=== PATIENT | male | born 1950 | race Caucasian/White ===

== ENCOUNTER 2017-10-15 15:54 | Observation (INO) | payer MEDICARE, OTHER ==
--- NOTE | 2017-10-15 16:12 | ED Physician Documentation ---
PD HPI DYSPNEA - Stated complaint Stated Complaint: CP/SOA - Chief complaint Chief Complaint: Cardiac - History obtained from History obtained from: Patient - History of Present Illness Timing - onset: Today (He has had a couple days of mild chest pain and shortness of breath which became worse today. He is a little bit of a cough with it and has noted some charley horses in his left leg but is not current. There is no recent travel. He has no history of heart or lung disease except for hypertension and he does have type 2 diabetes and recently started insulin. He feels better upright and supine. There is no pedal edema.) Review of Systems Ten Systems: 10 systems reviewed and negative Constitutional: denies: Fever, Chills Nose: denies: Rhinorrhea / runny nose, Congestion Cardiac: reports: Chest pain / pressure. denies: Palpitations, Pedal edema, Calf pain Respiratory: reports: Dyspnea, Cough. denies: Hemoptysis, Wheezing PD PAST MEDICAL HISTORY - Past Medical History Past Medical History: Yes Cardiovascular: Hypertension Endocrine/Autoimmune: Type 2 diabetes - Present Medications Home Medications: Ambulatory Orders Medication Instructions Recorded Confirmed Albuterol Sulf [Ventolin Hfa 2 puffs INH Q4H PRN 10/15/17 10/15/17 Inhaler] Amlodipine Besylate [Amlodipine 10 mg PO DAILY 10/15/17 10/15/17 Besylate] Doxazosin Mesylate [Doxazosin 2 mg PO QPM 10/15/17 10/15/17 Mesylate] Gabapentin 800 mg PO QPM 10/15/17 10/15/17 Gabapentin [Gabapentin] 800 mg PO 0 10/15/17 10/15/17 Glimepiride [Glimepiride] 8 mg PO 1700 10/15/17 10/15/17 Insulin Glargine [Lantus Solostar] 10 units SUBQ QPM 10/15/17 10/15/17 Pioglitazone HCl [Pioglitazone HCl] 30 mg PO DAILY 10/15/17 10/15/17 Pravastatin Sodium [Pravastatin 20 mg PO QPM 10/15/17 10/15/17 Sodium] Tamsulosin [Flomax] 0.4 mg PO DAILY 10/15/17 10/15/17 Tramadol HCl [Tramadol HCl] 100 mg PO QPM 10/15/17 10/15/17 Trazodone HCl 50 mg PO QPM 10/15/17 10/15/17 hydroCHLOROthiazide 25 mg PO DAILY 10/15/17 10/15/17 [Hydrochlorothiazide] - Allergies Allergies/Adverse Reactions: Allergies Allergy/AdvReac Type Severity Reaction Status Date / Time No Known Drug Allergies Allergy Verified 10/15/17 17:18 - Living Situation Living Situation: reports: Alone - Social History Does the pt smoke?: No Does the pt have substance abuse?: No - Family History Family history: reports: Non contributory PD ED PE NORMAL - Vitals Vital signs reviewed: Yes - General General: Alert and oriented X 3, No acute distress - HEENT HEENT: PERRL, EOMI - Neck Neck: Supple, no meningeal sign, No bony TTP, No JVD - Cardiac Cardiac: RRR, No murmur - Respiratory Respiratory: No respiratory distress, Clear bilaterally - Abdomen Abdomen: Soft, Non tender - Back Back: No CVA TTP, No spinal TTP - Derm Derm: Normal color, Warm and dry - Extremities Extremities: No edema, No calf tenderness / cord - Neuro Neuro: Alert and oriented X 3, Normal speech - Psych Psych: Normal mood, Normal affect Results - Vitals Vitals: Vital Signs - 24 hr 10/15/17 15:58 Temperature 36.7 C Heart Rate 82 Respiratory 18 Rate Blood Pressure 216/87 H O2 Saturation 97 Oxygen O2 Source Room air - EKG (time done) 1601 Rate: Rate (enter#) (70) Rhythm: NSR [place]: Normal Intervals: Normal [place] QRS: Normal Ischemia: Normal ST segments Computer interpretation: Agree with computer - Labs Labs: Laboratory Tests 10/15/17 10/15/17 10/15/17 16:20 16:20 16:20 WBC 7.0 RBC 3.94 L Hgb 12.3 L Hct 36.2 L MCV 92.0 MCH 31.3 H MCHC 34.0 RDW 13.5 Plt Count 180 MPV 8.5 Neut # 4.4 Lymph # 1.6 [place] # 0.7 Eos # 0.2 Baso # 0.0 Absolute Nucleated RBC 0.00 Nucleated RBC % 0.0 D-Dimer < 200.0 L Sodium 134 L Potassium 3.8 Chloride 100 L Carbon Dioxide 29 Anion Gap 5.0 L BUN 40 H Creatinine 1.9 H Estimated GFR (MDRD) 35 L Glucose 257 H Calcium 9.0 Total Bilirubin 0.5 AST 32 ALT 28 Alkaline Phosphatase 77 Troponin I B-Natriuretic Peptide Total Protein 7.1 Albumin 4.3 Globulin 2.8 Albumin/Globulin Ratio 1.5 Lipase 18 L 10/15/17 10/15/17 16:20 16:20 WBC RBC Hgb Hct MCV MCH MCHC RDW Plt Count MPV Neut # Lymph # [place] # Eos # Baso # Absolute Nucleated RBC Nucleated RBC % D-Dimer Sodium Potassium Chloride Carbon Dioxide Anion Gap BUN Creatinine Estimated GFR (MDRD) Glucose Calcium Total Bilirubin AST ALT Alkaline Phosphatase Troponin I < 0.04 B-Natriuretic Peptide 74 Total Protein Albumin Globulin Albumin/Globulin Ratio Lipase PD MEDICAL DECISION MAKING - ED course ED course: 67-year-old gentleman with unexplained positional shortness of breath. He is at high risk for coronary disease given his comorbidities, especially diabetes and hypertension. His initial workup is negative with a clear chest x-ray, normal EKG and negative biomarkers and d-dimer. That said without an obvious explanation I think an anginal equivalent must be assumed and I spoke with Dr. Harrison for observation and rule out at 5:15 PM. Departure - Departure Disposition: ED Place in Observation Clinical Impression: Chest pain Qualifiers: Chest pain type: chest pain on breathing Qualified Code(s): R07.1 - Chest pain on breathing Dyspnea Qualifiers: Dyspnea type: dyspnea on exertion Qualified Code(s): R06.09 - Other forms of dyspnea Condition: Stable
--- NOTE | 2017-10-15 16:31 | XRAY Preliminary Report ---
Exam: XR CHEST 2 VIEW X-RAY IMPRESSION: Normal 2-view chest radiography. [facility] SITE ID: [id number]
--- NOTE | 2017-10-15 16:37 | XRAY Report ---
EXAM: CHEST RADIOGRAPHY EXAM DATE: 10/15/2017 04:25 PM. CLINICAL HISTORY: Chest tightness and shortness of breath for one day. COMPARISON: None. TECHNIQUE: 2 views. FINDINGS: Lungs/Pleura: No focal opacities evident. No pleural effusion. No pneumothorax. Normal volumes. Mediastinum: Heart and mediastinal contours are unremarkable. Other: None. IMPRESSION: Normal 2-view chest radiography. [facility] Referring Provider Line: [phone] SITE ID: [id number]
[2017-10-15 16:45] LABS: BASOPHILS % (AUTO) 0.7 %; EOSINOPHILS # (AUTO) 0.2 10^3/uL (0.0-0.7); EOSINOPHILS % (AUTO) 2.8 %; HGB - HEMOGLOBIN 12.3 g/dL (14.0-18.0); LYMPHOCYTES # (AUTO) 1.6 10^3/uL (1.5-3.5); LYMPHOCYTES % (AUTO) 23.6 %; MEAN CORPUSCULAR HEMOGLOBIN 31.3 pg (27.0-31.0); MEAN PLATELET VOLUME 8.5 fL (7.4-11.4); MONOCYTES # (AUTO) 0.7 10^3/uL (0.0-1.0); MONOCYTES % (AUTO) 9.4 %; NEUTROPHILS # (AUTO) 4.4 10^3/uL (1.5-6.6); NEUTROPHILS % (AUTO) 63.5 %; PLT - PLATELET COUNT 180 10^3/uL (130-450); RED BLOOD COUNT 3.94 10^6/uL (4.70-6.10); RED CELL DISTRIBUTION WIDTH 13.5 % (12.0-15.0)
[2017-10-15 16:52] LABS: ALBUMIN 4.3 g/dL (3.2-5.5); ALBUMIN/GLOBULIN RATIO 1.5 (1.0-2.2); BILIRUBIN,TOTAL 0.5 mg/dL (0.2-1.0); CREATININE 1.9 mg/dL (0.6-1.2); TOTAL PROTEIN 7.1 g/dL (6.7-8.2)
[2017-10-15] MEDS ORDERED: ASPIRIN CHEW 81 MG TABLET PO STA (17:13)
[2017-10-15] MEDS ORDERED: TEMAZEPAM 15 MG CAPSULE PO PRN (17:34)
[2017-10-15] MEDS ORDERED: SODIUM CHLORIDE FLUSH 0.9% 10 ML SYRINGE IVP PRN (17:34)
[2017-10-15] MEDS ORDERED: oxyCODONE 5 MG TABLET PO PRN (17:34)
[2017-10-15] MEDS ORDERED: PROCHLORPERAZINE 10 MG/2 ML VIAL IVP PRN (17:34)
--- NOTE | 2017-10-15 17:46 | HISTORY & PHYSICAL EXAMINATION ---
Chief Complaint - Chief Complaint Chief Complaint: Chest tightness History of Present Illness - Admitted From Admitted From:: Home - History Obtained From History obtained from: Patient, ER physician Exam Limitations: None noted - History of Present Illness HPI Comment/Other: Mr. Jose Galvez is a very pleasant 67-year-old gentleman with a history of hypertension, hypercholesterolemia, and type 2 diabetes mellitus. He began to experience some chest tightness today around 3 PM which he experienced more as a shortness of breath and anything else. He relates it to a similar feeling that he has when he gets leg cramps. He spoke with some friends and finally spoke with a neighbor who is a nurse who just took him to the emergency department where he was evaluated and found to be hypertensive with a blood pressure of 216/87. An EKG was done which was completely negative for any type of pathology as was a chest x-ray which was also similarly free of pathology. The patient's creatinine is 1.9 and he says he has a history of an elevated creatinine for which he was taken off of 1 of his diabetes medications. Because of the patient's history it is felt to be prudent that he be observed for the remaining 2 sets of troponins. The first set was negative. History - Past Medical History Cardiovascular: reports: Hypertension, High cholesterol Respiratory: reports: COPD Neuro: reports: Peripheral neuropathy Endocrine/Autoimmune: reports: Type 2 diabetes GI: reports: None AUTOMATION DRIVER: reports: None : reports: Benign prostate hypertrophy, Incontinence HEENT: reports: None Psych: reports: None Musculoskeletal: reports: None Derm: reports: None MRSA Hx?: No - Past Surgical History Derm: reports: Debridement Other past surgical history: The patient denies ever having had surgery. - Family & Social History Family History: Mother: , CVA/TIA, Diabetes, Type 2, Father: , CAD, Hyperlipidemia, Hypertension, [place], Brother: Living arrangement: At home Living Situation: Alone - Substance History Use: Uses substance without health or social issues: NONE Abuse: Recurrent use of substance despite neg consequences: NONE Dependence: Experiences withdrawal or developed tolerances: NONE (Patient quit drinking alcohol about 8-10 years ago and quit smoking cigarettes about 18 years ago.) - POLST Patient has POLST: No POLST Status: Full Code Meds/Allgy - Home Medications Home Medications: Ambulatory Orders Medication Instructions Recorded Confirmed Albuterol Sulf [Ventolin Hfa 2 puffs INH Q4H PRN 10/15/17 10/15/17 Inhaler] Amlodipine Besylate [Amlodipine 10 mg PO DAILY 10/15/17 10/15/17 Besylate] Doxazosin Mesylate [Doxazosin 2 mg PO DAILY 10/15/17 10/15/17 Mesylate] Gabapentin [Gabapentin] 800 mg PO TID 10/15/17 10/15/17 Glimepiride [Glimepiride] 4 mg PO BID 10/15/17 10/15/17 Insulin Glargine [Lantus Solostar] 10/15/17 Pioglitazone HCl [Pioglitazone HCl] 30 mg PO DAILY 10/15/17 10/15/17 Pravastatin Sodium [Pravastatin 20 mg PO QPM 10/15/17 10/15/17 Sodium] Tamsulosin [Flomax] 0.4 mg PO DAILY 10/15/17 10/15/17 Tramadol HCl [Tramadol HCl] 50 mg PO TID 10/15/17 10/15/17 Trazodone HCl 50 mg PO QPM 10/15/17 10/15/17 hydroCHLOROthiazide 25 mg PO DAILY 10/15/17 10/15/17 [Hydrochlorothiazide] - Allergies Allergies/Adverse Reactions: Allergies Allergy/AdvReac Type Severity Reaction Status Date / Time No Known Drug Allergies Allergy Verified 10/15/17 17:18 Review of Systems - Constitutional Constitutional: denies: Fatigue, Fever, Chills, Weakness, Night sweats - Eyes Eyes: denies: Pain, Irritation, Blurred vision, Dipolpia - Ears, Nose & Throat Ears, Nose & Throat: denies: Ear pain, Hearing loss, Hearing aids, Tinnitus, Vertigo, Nasal pain, Nasal discharge - Cardiovascular Cariovascular: reports: Chest pain. denies: Palpitations, Edema, Syncope - Respiratory Respiratory: reports: SOB at rest, Other (Chest tightness). denies: Cough, Sputum production, Wheezing, Snoring - Gastrointestinal Gastrointestinal: denies: Abdominal pain, Abdominal distention, Constipation, Diarrhea, Change in bowel habits, Rectal bleeding - Genitourinary Genitourinary: denies: Dysuria, Frequency, Urgency, Hematuria - Musculoskeletal Musculoskeletal: denies: Muscle pain, Back pain, Muscle aches, Stiffness - Integumentary Integumentary: denies: Rash, Pruritis, Lesions, Dryness - Neurological Neurological: denies: General weakness, Focal weakness, Headache, Dizziness - Psychiatric Psychiatric: denies: Depression, Anxiety, Suicidal, Hallucinations - Endocrine Endocrine: denies: Polyuria, Polydypsia, Polyphagia - Hematologic/Lymphatic Hematologic/Lymphatic: denies: Anemia, Bruising, Petechiae, Lymphadenopathy - All Other Systems All Other Systems: reports: Reviewed and negative Exam - Vital Signs Reviewed Vital Signs: Yes Vital Signs: Vital Signs x48h Temp Pulse Resp BP Pulse Ox 10/15/17 15:58 36.7 C 82 18 216/87 H 97 - Physical Exam General Appearance: positive: No acute distress, Alert Eyes Bilateral: positive: Normal inspection, PERRL, EOMI, No lid inflammation, Conjunctivae nml, No scleral icterus ENT: positive: ENT inspection nml, Pharynx nml, No signs of dehydration Neck: positive: Nml inspection, Thyroid nml, No JVD, Trachea midline. negative : Thyromegaly Respiratory: positive: Chest non-tender, No respiratory distress, Breath sounds nml. negative: Wheezes, Rales, Rhonchi Cardiovascular: positive: Regular rate & rhythm, No murmur, No gallop Peripheral Pulses: positive: 1+ Abdomen: positive: Non-tender, No organomegaly, Nml bowel sounds, No distention. negative: Guarding, Rebound Back: positive: Nml inspection. negative: CVA tenderness (R), CVA tenderness (L ) Skin: positive: Color nml, No rash, Warm, Dry. negative: Cyanosis Extremities: positive: Non-tender, Full ROM, Nml appearance Neurologic/Psychiatric: positive: Oriented x3, CN's nml (2-12), Motor nml, Sensation nml, Mood/affect nml Conclusion/Plan - Problem List (1) Chest tightness or pressure Conclusion/Plan: Patient is admitted to a telemetry bed. We will continue with the chest pain/ cardiac workup. The patient will have 2 more sets of troponins and if these are negative we will discharge him in the morning. (2) Chronic kidney disease (CKD) Conclusion/Plan: The patient relates being taken off of diabetic medication because it was affecting his kidney function. He believes he has a history of chronic renal disease but is unsure of any staging. There are no records available at this time. We will monitor. (3) Hypertension Conclusion/Plan: Markedly elevated on admission with a blood pressure of 216/87. Continue hydrochlorothiazide, amlodipine, and will add an HOMER inhibitor given the patient 's diabetic status. Qualifiers: Hypertension type: essential hypertension Qualified Code(s): I10 - Essential (primary) hypertension (4) Hypercholesterolemia Conclusion/Plan: Presumably well-managed, continue pravastatin. (5) Type 2 diabetes mellitus Conclusion/Plan: Presumably well-managed, continue glimepiride, insulin, and pioglitazone. Qualifiers: Diabetes mellitus complication detail: with unspecified neuropathy (6) Benign prostatic hyperplasia Conclusion/Plan: Well-managed, continue doxazosin and tamsulosin (7) Diabetic neuropathy Conclusion/Plan: No new complaints, continue gabapentin and tramadol (8) Chronic obstructive pulmonary disease Conclusion/Plan: Well-managed, the patient is not experiencing any type of respiratory distress at this time. Continue albuterol. (9) Insomnia Conclusion/Plan: We will continue nighttime trazodone. - Lab Results Lab results reviewed: Yes Fish Bones: 10/15/17 16:20 10/15/17 16:20 - Diagnostic Imaging Results Diagnostic Imaging Results: positive: Final report reviewed Diagnostic Imaging Results Comments: EXAM: CHEST RADIOGRAPHY EXAM DATE: 10/15/2017 04:25 PM. CLINICAL HISTORY: Chest tightness and shortness of breath for one day. COMPARISON: None. TECHNIQUE: 2 views. FINDINGS: Lungs/Pleura: No focal opacities evident. No pleural effusion. No pneumothorax. Normal volumes. Mediastinum: Heart and mediastinal contours are unremarkable. Other: None. IMPRESSION: Normal 2-view chest radiography. - EKG Results EKG Interpreted Independently: Yes EKG Comparison: Old EKG unavailable EKG Findings: Normal sinus rhythm, rate 70 Core Measures - DVT/VTE - Prophylaxis VTE/DVT Device ordered at admit?: Yes
[2017-10-15] MEDS ORDERED: GLIMEPIRIDE 2 MG TABLET PO SCH (18:00)
[2017-10-15] MEDS ORDERED: ALBUTEROL NEB 2.5 MG/3 ML INH PRN (19:00)
[2017-10-15] MEDS ORDERED: traZODone 50 MG TABLET PO SCH (21:00)
[2017-10-15] MEDS ORDERED: traMADol 50 MG TABLET PO SCH (21:00)
[2017-10-15] MEDS ORDERED: INSULIN GLARGINE 300 UNIT/3 ML PEN SUBQ SCH (21:00)
[2017-10-15] MEDS ORDERED: GABAPENTIN 400 MG CAPSULE PO SCH (21:00)
[2017-10-15] MEDS ORDERED: PRAVASTATIN 10 MG TABLET PO SCH (21:00)
[2017-10-15] MEDS ORDERED: DOXAZOSIN 4 MG TABLET PO SCH (21:00)
[2017-10-15] MEDS: INSULIN ASPART 300 UNIT/3 ML PEN SUBQ SCH (21:49)
[2017-10-16] MEDS: SODIUM CHLORIDE FLUSH 0.9% 10 ML SYRINGE IVP SCH ×2 (00:30→08:06)
[2017-10-16 06:36] LABS: HGB - HEMOGLOBIN 11.6 g/dL (14.0-18.0); MEAN CORPUSCULAR HEMOGLOBIN 30.7 pg (27.0-31.0); MEAN CORPUSCULAR HGB CONC 33.4 g/dL (32.0-36.0); MEAN PLATELET VOLUME 7.9 fL (7.4-11.4); RED BLOOD COUNT 3.79 10^6/uL (4.70-6.10); RED CELL DISTRIBUTION WIDTH 13.5 % (12.0-15.0); WHITE BLOOD COUNT 5.8 x10^3/uL (4.8-10.8)
[2017-10-16 06:43] LABS: CREATININE 1.8 mg/dL (0.6-1.2)
[2017-10-16 07:12] LABS: HB2 TOTAL 12.8 g/dL; HEMOGLOBIN A1C 0.76 g/dL; HEMOGLOBIN A1C % 7.6 % (4.6-6.2)
[2017-10-16] MEDS: INSULIN ASPART 300 UNIT/3 ML PEN SUBQ SCH (07:58)
[2017-10-16 08:10] VITALS: BP 154/74
[2017-10-16] MEDS ORDERED: hydroCHLOROthiazide 25 MG TABLET PO SCH (09:00)
[2017-10-16] MEDS ORDERED: amLODIPine 5 MG TABLET PO SCH (09:00)
[2017-10-16] MEDS ORDERED: TAMSULOSIN 0.4 MG CAPSULE PO SCH (09:00)
[2017-10-16] MEDS ORDERED: POLYETHYLENE GLYCOL 3350 17 GM PACKET PO SCH (09:00)
[2017-10-16] MEDS ORDERED: PIOGLITAZONE 15 MG TABLET PO SCH (09:00)
--- NOTE | 2017-10-16 09:18 | Discharge Plan ---
Discharge Plan Disposition: 01 Home, Self Care Condition: Stable Prescriptions: Nitroglycerin 0.4 mg SL FINISH GRINDER PRN #30 tab.subl PRN Reason: Chest Pain Diet: Low Sodium Activity Restrictions: Activity as Tolerated Shower Restrictions: No Driving Restrictions: No Weight Bearing: Full Weight Instruction Topics: Angina, Nitroglycerin Fast Acting Additional Instructions or Follow Up instructions: Follow-up with Dr. Muñoz next week and with a cyber legal advisor as soon as possible. If you start to have chest pain or chest pressure take the nitroglycerin and come to the emergency department immediately. No Smoking: If you smoke, Please STOP! Call for help. Follow-up with: Belle Muñoz MD [Primary Care Provider] -
--- NOTE | 2017-10-16 10:28 | DISCHARGE SUMMARY ---
Discharge Summary Admit Date: 10/15/17 Discharge Date: 10/16/17 Discharging Provider: Sofia Harrison DO Primary Care Provider: Belle Muñoz MD Code Status: Attempt Resuscitation Condition at Discharge: Stable Discharge Disposition: 01 Home, Self Care - DIAGNOSES Admission Diagnoses: 1. Chest tightness 2. Chronic kidney disease 3. Hypertension 4. Hypercholesterolemia 5. Type 2 diabetes mellitus 6. Benign prostatic hyperplasia 7. Diabetic neuropathy 8. Chronic obstructive pulmonary disease 9. Insomnia Discharge Diagnoses with Status of Each Condition: 1. Chest tightness- Chest x-ray was negative for any acute pathology, BNP is within normal limits. 3 sets of serial troponins were negative. The patient will be discharged home and will follow up with his primary care physician and with a supervisor coremaker. I believe this is unstable angina and I will discharge the patient home with a prescription of sublingual nitroglycerin as well. Should he have any further chest tightness or chest pain he will return to the emergency room immediately. 2. Chronic kidney diseaseWe are unable to obtain any records but have been told that the patient was once taken off of a antidiabetic medication due to problems with his kidneys. His creatinine has come down from 1.9 yesterday to 1.8 today.- 3. Hypertension- Patient's blood pressure is labile but fairly well-managed. Continue home medication regimen. 4. Hypercholesterolemia- Presumably well-managed, continue home pravastatin. 5. Type 2 diabetes mellitus -Presumably well-managed, continue glimepiride, insulin, and pioglitazone. 6. Benign prostatic hyperplasia- Well-managed, continue doxazosin and tamsulosin 7. Diabetic neuropathy- No new complaints during this hospitalization, continue gabapentin and tramadol at home. 8. Chronic obstructive pulmonary disease -Well-managed, the patient is not experiencing any type of respiratory distress at this time. Continue albuterol. 9. Insomnia- We will continue nighttime trazodone at home. - HPI History of Present Illness: Mr. Jose Galvez is a very pleasant 67-year-old gentleman with a history of hypertension, hypercholesterolemia, and type 2 diabetes mellitus. He began to experience some chest tightness today around 3 PM which he experienced more as a shortness of breath and anything else. He relates it to a similar feeling that he has when he gets leg cramps. He spoke with some friends and finally spoke with a neighbor who is a nurse who just took him to the emergency department where he was evaluated and found to be hypertensive with a blood pressure of 216/87. An EKG was done which was completely negative for any type of pathology as was a chest x-ray which was also similarly free of pathology. The patient's creatinine is 1.9 and he says he has a history of an elevated creatinine for which he was taken off of 1 of his diabetes medications. Because of the patient's history it is felt to be prudent that he be observed for the remaining 2 sets of troponins. The first set was negative. - HOSPITAL COURSE Hospital Course: The patient was admitted to a telemetry bed in the observation becerril. 2 further sets of troponins were drawn and came back negative. Patient did not experience any significant chest tightness or shortness of breath while on the observation floor. - ALLERGIES Allergies/Adverse Reactions: Allergies Allergy/AdvReac Type Severity Reaction Status Date / Time No Known Drug Allergies Allergy Verified 10/15/17 17:18 - MEDICATIONS Home Medications: Ambulatory Orders Medication Instructions Recorded Confirmed Albuterol Sulf [Ventolin Hfa 2 puffs INH Q4H PRN 10/15/17 10/15/17 Inhaler] Amlodipine Besylate 10 mg PO DAILY 10/15/17 10/15/17 Doxazosin Mesylate 2 mg PO QPM 10/15/17 10/15/17 Gabapentin 800 mg PO 1700 10/15/17 10/15/17 Gabapentin 800 mg PO QPM 10/15/17 10/15/17 Glimepiride 8 mg PO 1700 10/15/17 10/15/17 Insulin Glargine [Lantus Solostar] 10 units SUBQ QPM 10/15/17 10/15/17 Pioglitazone HCl 30 mg PO DAILY 10/15/17 10/15/17 Pravastatin Sodium 20 mg PO QPM 10/15/17 10/15/17 Tamsulosin [Flomax] 0.4 mg PO DAILY 10/15/17 10/15/17 Tramadol HCl 100 mg PO QPM 10/15/17 10/15/17 Trazodone HCl 50 mg PO QPM 10/15/17 10/15/17 hydroCHLOROthiazide 25 mg PO DAILY 10/15/17 10/15/17 [Hydrochlorothiazide] Nitroglycerin 0.4 mg SL WOOD HEEL CEMENTER PRN #30 tab.subl 10/16/17 - PHYSICAL EXAM AT DISCHARGE General Appearance: positive: No acute distress, Alert Eyes Bilateral: positive: Normal inspection, PERRL, EOMI, No lid inflammation, Conjunctivae nml, No scleral icterus ENT: positive: ENT inspection nml, Pharynx nml, No signs of dehydration Neck: positive: Nml inspection, Thyroid nml, No JVD, Trachea midline. negative : Thyromegaly Respiratory: positive: Chest non-tender, No respiratory distress, Breath sounds nml. negative: Wheezes, Rales, Rhonchi Cardiovascular: positive: Regular rate & rhythm, No murmur, No gallop Peripheral Pulses: positive: 1+ Abdomen: positive: Non-tender, No organomegaly, Nml bowel sounds Back: positive: Nml inspection. negative: CVA tenderness (R), CVA tenderness (L ) Skin: positive: Color nml, No rash, Warm, Dry. negative: Cyanosis Extremities: positive: Non-tender, Full ROM, Nml appearance, No pedal edema Neurologic/Psychiatric: positive: Oriented x3, CN's nml (2-12), Motor nml, Sensation nml, Mood/affect nml - LABS Result Diagrams: 10/16/17 06:25 10/16/17 06:25 - DIAGNOSTIC IMAGING Diagnostic Imaging Results: Final report reviewed Diagnostic Imaging Results Comments: EXAM: CHEST RADIOGRAPHY EXAM DATE: 10/15/2017 04:25 PM. CLINICAL HISTORY: Chest tightness and shortness of breath for one day. COMPARISON: None. TECHNIQUE: 2 views. FINDINGS: Lungs/Pleura: No focal opacities evident. No pleural effusion. No pneumothorax. Normal volumes. Mediastinum: Heart and mediastinal contours are unremarkable. Other: None. IMPRESSION: Normal 2-view chest radiography. - FOLLOW UP Follow Up: Follow-up with Dr. Muñoz next week. Follow-up with a supervisor coremaker as soon as possible. If you start to have chest pain, chest pressure, tightness, or shortness of breath, take the nitroglycerin and come back to the emergency department immediately. - TIME SPENT Time Spent in Discharge (Minutes): 40
[2017-10-16] MEDS ORDERED: GABAPENTIN 400 MG CAPSULE PO SCH (17:00)
== END 2017-10-16 11:48 | disposition home or self-care (01) ==
LOC: ED 15:54 → OBS 17:34
PROVIDERS: ADMIT Hospitalist; ATTEND Hospitalist
DX: R07.89 Other chest pain (principal); E11.22 Type 2 diabetes mellitus with diabetic chronic kidney disease; E11.40 Type 2 diabetes mellitus with diabetic neuropathy, unspecified; I12.9 Hypertensive chronic kidney disease with stage 1 through stage 4 chronic kidney disease, or unspecified chronic kidney disease; N18.9 Chronic kidney disease, unspecified; E78.00 Pure hypercholesterolemia, unspecified; J44.9 Chronic obstructive pulmonary disease, unspecified; G47.00 Insomnia, unspecified; Z79.51 Long term (current) use of inhaled steroids; Z79.4 Long term (current) use of insulin; Z79.899 Other long term (current) drug therapy
CPT/HCPCS: 36415; 71046; 80048; 80053; 83036; 83690; 83880; 84484; 85025; 85027; 85379; 99283; 99284; A9270; G0378; J1815; J8499

== ENCOUNTER 2017-10-29 10:44 | Outpatient (CLI) | payer MEDICARE, OTHER ==
--- NOTE | 2017-11-01 15:37 | Ultrasound Report ---
RENAL ARTERY DUPLEX: 10/29/2017 CLINICAL INDICATION: Renal insufficiency. TECHNIQUE: Real-time sonographic vascular imaging was performed by the hospice home health aide through the renal arteries utilizing both color-flow and Doppler flow analysis. Multiple installation service representative static images were saved for review. RT KIDNEY RENAL SIZE LT KIDNEY RENAL SIZE Size: 11.6 x 4.6 x 5.3 cm Size: 10.4 x 6.0 x 5.8 cm SEGMENTAL ARTERY SEGMENTAL ARTERY PSV RI PSV RI Upper Pole 0.74 0.88 Upper Pole 104 84 Mid Pole 88 0.83 Mid Pole 56 82 Lower Pole 63.3 0.82 Lower Pole 78 82 RIGHT RENAL ARTERY LEFT RENAL ARTERY PSV RENAL ARTERY/ AORTA RATIO (RA/AO) PSV RENAL ARTERY/ AORTA RATIO (RA/AO) Origin: 94 0.92 Origin: not seen well not seen well Proximal: not seen well not seen well Proximal: 90 0.88 Mid: 110 1.0 Mid: 101 0.99 Distal: 181 17 Distal: 124 1.23 PROX AORTA PSV: 102 RRV patent: yes LRV patent: yes Source: Criteria for Classification of Renal Artery Disease by Duplex Scanning [employer] [facility] Duplex Scanning In Vascular Disorders, 4th ed. 2010. Print. RENAL ARTERY DIAMETER REDUCTION RENAL ARTERY PSV RAR Normal < 180 cm/sec < 3.5 < 60% >/= 180 cm/sec < 3.5 >/= 60% >/= 180 cm/sec >/= 3.5 Occlusion (100%) No signal No signal FINDINGS RIGHT: The origin and proximal right renal artery segments are not well visualized. The mid to distal segments demonstrate normal velocities and ratios. The right renal vein is patent. Resistive indices in the right kidney are elevated, compatible with medical renal disease. The right kidney measures 11.6 x 5.3 x 4.6 cm. No hydronephrosis is seen. LEFT: The origin and proximal segment of the left renal artery are not well visualized. The mid to distal segments demonstrate normal velocities and ratios. Resistive indices are elevated, compatible with medical renal disease. The left kidney measures 10.4 x 6.0 x 5.8 cm, and demonstrates no hydronephrosis. IMPRESSION: ELEVATED RESISTIVE INDICES, COMPATIBLE WITH MEDICAL RENAL DISEASE. NO EVIDENCE OF A HEMODYNAMICALLY SIGNIFICANT ARTERIAL STENOSIS IN THE VISUALIZED SEGMENTS. TD: 10/29/2017 17:16 CHANDNI
== END 2017-10-29 10:45 | disposition home or self-care (01) ==
LOC: DI 10:44
PROVIDERS: ATTEND Internal Medicine
DX: N28.9 Disorder of kidney and ureter, unspecified (principal)
CPT/HCPCS: 93975

== ENCOUNTER 2018-02-17 12:54 | Outpatient (CLI) | payer MEDICARE, OTHER | END 2018-02-17 12:55 | disposition home or self-care (01) | LOC: NS 12:54 | PROVIDERS: ATTEND Internal Medicine | DX: Z71.3 Dietary counseling and surveillance (principal); E11.9 Type 2 diabetes mellitus without complications; Z68.33 Body mass index [BMI] 33.0-33.9, adult | CPT/HCPCS: 97802 ==

== ENCOUNTER 2018-03-10 10:52 | Outpatient (CLI) | payer MEDICARE, OTHER | END 2018-03-10 10:53 | disposition home or self-care (01) | LOC: NS 10:52 | PROVIDERS: ATTEND Internal Medicine | DX: Z71.3 Dietary counseling and surveillance (principal); E11.9 Type 2 diabetes mellitus without complications; Z68.32 Body mass index [BMI] 32.0-32.9, adult; Z79.4 Long term (current) use of insulin | CPT/HCPCS: 97803 ==

== ENCOUNTER 2018-07-19 13:51 | Outpatient (CLI) | payer MEDICARE, OTHER | END 2018-07-19 13:52 | disposition home or self-care (01) | LOC: SC 13:51 | PROVIDERS: ATTEND Internal Medicine Pulmonary Disease | DX: G47.10 Hypersomnia, unspecified (principal); R41.89 Other symptoms and signs involving cognitive functions and awareness; R06.83 Snoring; G47.8 Other sleep disorders | CPT/HCPCS: 99203; G0463; 99212 ==

== ENCOUNTER 2018-07-23 21:50 | Outpatient (CLI) | payer MEDICARE, OTHER | END 2018-07-23 21:51 | disposition home or self-care (01) | LOC: SC 21:50 | PROVIDERS: ATTEND Internal Medicine Pulmonary Disease | DX: G47.33 Obstructive sleep apnea (adult) (pediatric) (principal) | CPT/HCPCS: 95811 ==

== ENCOUNTER 2018-08-01 13:14 | Outpatient (CLI) | payer MEDICARE, OTHER | END 2018-08-01 13:15 | disposition home or self-care (01) | LOC: SC 13:14 | PROVIDERS: ATTEND Internal Medicine Pulmonary Disease | DX: G47.33 Obstructive sleep apnea (adult) (pediatric) (principal) | CPT/HCPCS: 99213; G0463; 99212 ==

== ENCOUNTER 2018-09-19 14:55 | Outpatient (CLI) | payer MEDICARE, OTHER | END 2018-09-19 14:56 | disposition home or self-care (01) | LOC: SC 14:55 | PROVIDERS: ATTEND Internal Medicine Pulmonary Disease | DX: G47.33 Obstructive sleep apnea (adult) (pediatric) (principal) | CPT/HCPCS: 99213; G0463; 99212 ==

== ENCOUNTER 2018-10-24 09:56 | Outpatient (CLI) | payer MEDICARE, OTHER | END 2018-10-24 09:57 | disposition home or self-care (01) | LOC: SC 09:56 | PROVIDERS: ATTEND Internal Medicine Pulmonary Disease | DX: G47.33 Obstructive sleep apnea (adult) (pediatric) (principal) | CPT/HCPCS: 99213; G0463; 99212 ==

== ENCOUNTER 2020-09-16 10:32 | Outpatient (CLI) | payer MEDICARE, OTHER ==
--- NOTE | 2020-09-16 12:27 | SLEEP CARE CONSULTATION ---
Information from patient questionnaire entered by Holly Smalls. I have reviewed and concur with the information entered by Holly Smalls. This document represents the service I personally performed and the decisions made by me, Laron Hawkins MD, [facility]. History of Present Illness Service Date and Time: 09/16/2020 1032 Previous diagnosis: Severe, Obstructive Sleep Apnea-Hypopnea Syndrome AHI: 50.9 (in 2019) Reason for follow up: annual (last seen 10/2018) Equipment type: CPAP Equipment obtained from: [employer] Mask style: Full face Mask brand: Respironics Prior sleep studies: Yes Year and Where: 2019 - [facility] Type of Sleep Study: Polysomnography HPI additional information: HPI: Mr. Galvez returned today for annual follow up of nasal CPAP therapy and pressure change. He was diagnosed to have severe obstructive sleep apnea- hypopnea syndrome. The patient went to [place] for the equipment and was fitted with a full face mask. He reports using the device nightly and all through the night. The compliance report shows usage in 179 nights out of the past 180 nights, averaging 5.8 hours a night. The > 4 hour compliance rate for the past 30 days is 78.9%. He complained of no particular problem with the device such as soreness on the face, dry nose, epistaxis, nasal congestion or headache. He thinks that the pressure of 8 - 15 cmH2O is comfortable. On the CPAP therapy he notices improvement in his sleep quality, and that he wakes up feeling fresher in the morning and more awake/alert during the day. The [place] Sleepiness Scale score is 0 (was 2). The average residual AHI is 2.0; and average time in large leak per day is 17 minutes. The 90th percentile pressure is 10.5 cmH2O. CPAP Compliance Data - Data Reviewed with Patient Average duration of nightly device use: 5 hr 47 min Compliance rate %: 78.9 (180 days) Current pressure setting (cmH2O): 8-15 Humidity settin Heated hose settin Average residual AHI: 2.0 Average large leak: 17 min 44 sec Subjective Current pressure setting perceived as: comfortable Initial [place] Sleepiness Scale score: 13 (in 2019) Current [place] Sleepiness Scale score: 0 Allergies and Home Medications Drug allergies reviewed: Yes Home medication list reviewed: Yes Review of Systems Review of systems same as previous: Yes Physical Exam Height: 5 ft 8 in Weight: 216 lb Body Mass Index: 32.8 BMI Classification: Obese Impression and Plan IMPRESSION: 1. Obstructive Sleep Apnea-Hypopnea Syndrome, severe, with the patient continuing to do well on nasal CPAP therapy. He has good compliance and significant clinical improvement. The current pressure appears effective and comfortable. Overall, he is very satisfied with treatment and plans to continue with it long-term. No adjustment is necessary today. PLAN: 1. Continue with autoCPAP set at 8 15 cmH2O. 2. Try to lose weight 3. Try other full face masks, e.g. ResMed AirTouch F-20 full face mask. 4. Return in one year for follow up or earlier if there is any problem with the treatment. Counseling Topics: Weight control Visit Type: In Office Time Spent with Patient (minutes): 15 Provider Statement: I spent 100% of the Face to Face Visit with the patient with greater than 50% spent counseling the patient and coordination of care.
== END 2020-09-16 10:33 | disposition home or self-care (01) ==
LOC: SC 10:32
PROVIDERS: ATTEND Internal Medicine Pulmonary Disease
DX: G47.33 Obstructive sleep apnea (adult) (pediatric) (principal); E66.9 Obesity, unspecified; Z68.32 Body mass index [BMI] 32.0-32.9, adult
CPT/HCPCS: 99212; G0463

== ENCOUNTER 2021-02-12 18:48 | Outpatient (CLI) | payer MEDICARE, OTHER | END 2021-02-12 18:49 | disposition critical access hospital (66) | LOC: EMS 18:48 | DX: R29.898 Other symptoms and signs involving the musculoskeletal system (principal) | CPT/HCPCS: A0425; A0429 ==

== ENCOUNTER 2021-02-12 18:59 | Emergency (ER) | payer MEDICARE, OTHER ==
[2021-02-12] MEDS ORDERED: IOPAMIDOL-300 100 ML VIAL ONE (19:18)
[2021-02-12 19:21] LABS: BASOPHILS # (AUTO) 0.1 10^3/uL (0.0-0.1); BASOPHILS % (AUTO) 0.8 %; EOSINOPHILS # (AUTO) 0.2 10^3/uL (0.0-0.7); EOSINOPHILS % (AUTO) 3.1 %; HCT - HEMATOCRIT 40.9 % (42.0-52.0); HGB - HEMOGLOBIN 13.7 g/dL (14.0-18.0); LYMPHOCYTES # (AUTO) 1.7 10^3/uL (1.5-3.5); LYMPHOCYTES % (AUTO) 26.9 %; MEAN CORPUSCULAR HGB CONC 33.5 g/dL (32.0-36.0); MEAN CORPUSCULAR VOLUME 92.5 fL (80.0-94.0); MEAN PLATELET VOLUME 10.5 fL (7.4-11.4); MONOCYTES # (AUTO) 0.5 10^3/uL (0.0-1.0); MONOCYTES % (AUTO) 8.5 %; NEUTROPHILS # (AUTO) 3.8 10^3/uL (1.5-6.6); NEUTROPHILS % (AUTO) 59.9 %; PLT - PLATELET COUNT 173 10^3/uL (130-450); RED BLOOD COUNT 4.42 10^6/uL (4.70-6.10); RED CELL DISTRIBUTION WIDTH 12.7 % (12.0-15.0); WHITE BLOOD COUNT 6.4 x10^3/uL (4.8-10.8)
[2021-02-12 19:27] LABS: PT - PROTHROMBIN TIME 11.3 secs (9.9-12.6)
[2021-02-12 19:33] LABS: ALBUMIN 4.1 g/dL (3.2-5.5); ALBUMIN/GLOBULIN RATIO 1.6 (1.0-2.2); BILIRUBIN,TOTAL 0.5 mg/dL (0.2-1.0); CREATININE 1.7 mg/dL (0.6-1.2); POTASSIUM 4.3 mmol/L (3.5-5.0); TOTAL PROTEIN 6.6 g/dL (6.7-8.2)
[2021-02-12 19:34] LABS: PARTIAL THROMBOPLASTIN TIME 27.4 secs (24.9-33.3)
--- NOTE | 2021-02-12 19:35 | ED Physician Documentation ---
PD HPI FOCAL NEURO - Stated complaint Stated Complaint: RIGHT LEG NUMB, POSS STROKE - Chief complaint Chief Complaint: Neuro - History obtained from History obtained from: Patient, EMS - History of Present Illness Timing - onset: How many hours ago (1.25) Timing - details: Abrupt onset Severity of deficit: Moderate Weakness: Arm, Leg, Right Numbness: No: Face, Arm, Hand, Leg, Foot, Right, Left Associated symptoms: No: Headache, Nausea / vomiting, Seizure, Syncope, Fall, Head injury, Chest pain, Neck pain, Back pain, Fever Contributing factors: negative: Anticoagulated, Vascular dz, Atrial fibrillation, Prosthetic heart valve Baseline status: positive: A&OX3, ambulatory, indep Similar symptoms before: Has not had sx before Recently seen: Not recently seen - Additional information Additional information: Patient states that he sat down in a chair at 1730, when he got up at 1800, he noticed that his right arm and right leg were "not working right". Had difficulty walking. Called 911 and brought here. No falls. No trauma. No seizure activity. 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 : Benign prostate hypertrophy, Incontinence HEENT: None Psych: None Musculoskeletal: None Derm: None - Past Surgical History Cardiovascular: Vascular surgery Derm: Debridement - Present Medications Home Medications: Ambulatory Orders Medication Instructions Recorded Confirmed Albuterol Sulf [Ventolin Hfa 2 puffs INH Q4H PRN 10/15/17 07/27/19 Inhaler] Glimepiride 8 mg PO 1700 10/15/17 09/08/19 Insulin Glargine [Lantus Solostar] 45 units SUBQ QPM 10/15/17 07/27/19 Tamsulosin [Flomax] 0.4 mg PO DAILY 10/15/17 07/27/19 Trazodone HCl 50 mg PO QPM 10/15/17 07/27/19 Aspirin 325 mg PO DAILY 07/27/19 07/27/19 Multivitamin [Multivitamins] 1 each PO DAILY 07/27/19 07/27/19 Olanta-3/Dha/Epa/Fish Oil [Olanta 3 1 each PO DAILY 07/27/19 07/27/19 500 Softgel] - Allergies Allergies/Adverse Reactions: Allergies Allergy/AdvReac Type Severity Reaction Status Date / Time No Known Drug Allergies Allergy Verified 02/12/21 19:15 - Social History Does the pt smoke?: No Smoking Status: Never smoker Does the pt have substance abuse?: No - POLST Patient has POLST: No POLST Status: Full Code PD ED PE NORMAL - Vitals Vital signs reviewed: Yes - General General: Alert and oriented X 3, No acute distress - HEENT HEENT: Atraumatic, PERRL, Moist mucous membranes - Neck Neck: Supple, no meningeal sign - Cardiac Cardiac: RRR, Strong equal pulses - Respiratory Respiratory: No respiratory distress, Clear bilaterally - Abdomen Abdomen: Soft, Non tender, Non distended - Derm Derm: Warm and dry - Extremities Extremities: No edema, No calf tenderness / cord - Neuro Neuro: Alert and oriented X 3, No sensory deficit, Other (R sided arm and leg ataxia) Eye Opening: Spontaneous Motor: Obeys Commands Verbal: Oriented GCS Score: 15 - Psych Psych: Normal mood, Normal affect NIHSS - Time Time: 19:05 - Level of Consciousness Level of consciousness: (0) Alert, Keenly responsive LOC Questions: (0) Answers both Q's correct LOC Commands: (0) Performs both correctly - Gaze Best Gaze: (0) Normal - Visual Visual: (0) No loss - Facial Palsy Facial Palsy: (0) Normal, symmetrical movement - Motor Arms (both separate) Motor Arm (right): (1) Drift Motor Arm (left): (0) No drift - Motor Legs (both separate) Motor Leg (right): (1) Drift Motor Leg (left): (0) No drift - Limb Ataxia Limb Ataxia: (2) Present in 2 limbs - Sensory Sensory: (0) Normal - Best Language Best Language: (0) No aphasia - Dysarthria Dysarthria: (0) Normal - Extinction and Inattention (formally neg Extinction and inattention: (0) No abnormality - Total Score/Results Total Score/Result: 4 Results - Vitals Vitals: Vital Signs - 24 hr 02/12/21 02/12/21 02/12/21 19:00 19:15 19:45 Temperature 37.2 C 37.2 C Heart Rate 76 76 72 Respiratory 18 18 16 Rate Blood Pressure 125/105 H 125/102 H 211/85 H O2 Saturation 95 95 95 02/12/21 02/12/21 02/12/21 20:24 20:33 20:36 Temperature Heart Rate 70 80 69 Respiratory 19 18 18 Rate Blood Pressure 195/83 H 233/90 H 221/84 H O2 Saturation 94 97 96 02/12/21 02/12/21 02/12/21 20:50 20:52 20:57 Temperature Heart Rate 66 67 66 Respiratory 13 13 17 Rate Blood Pressure 201/81 H 213/77 H 181/81 H O2 Saturation 95 97 96 02/12/21 02/12/21 02/12/21 21:00 21:07 21:28 Temperature Heart Rate 63 64 68 Respiratory 15 20 16 Rate Blood Pressure 170/64 H 160/67 H 158/74 H O2 Saturation 94 97 94 02/12/21 02/12/21 02/12/21 21:30 21:37 21:42 Temperature Heart Rate 64 63 64 Respiratory 15 13 16 Rate Blood Pressure 158/69 H 174/73 H 176/69 H O2 Saturation 95 96 96 02/12/21 02/12/21 02/12/21 21:46 21:52 21:57 Temperature Heart Rate 63 65 68 Respiratory 18 20 16 Rate Blood Pressure 162/65 H 160/67 H 181/70 H O2 Saturation 95 94 98 02/12/21 02/12/21 02/12/21 22:00 22:09 22:12 Temperature Heart Rate 66 63 66 Respiratory 16 14 16 Rate Blood Pressure 165/64 H 163/61 H 173/71 H O2 Saturation 97 94 95 02/12/21 02/12/21 02/12/21 22:17 22:21 22:29 Temperature Heart Rate 67 64 64 Respiratory 16 15 19 Rate Blood Pressure 156/59 H 159/64 H 153/60 H O2 Saturation 95 95 95 02/12/21 22:30 Temperature Heart Rate 64 Respiratory 18 Rate Blood Pressure 153/60 H O2 Saturation 94 Oxygen O2 Source Room air - EKG (time done) 1918 Rate: Rate (enter#) (71) Rhythm: NSR [place]: Normal Intervals: Normal IN QRS: Normal Ischemia: ST elevation c/w repol - Labs Labs: Laboratory Tests 02/12/21 02/12/21 02/12/21 19:16 19:16 19:16 WBC 6.4 RBC 4.42 L Hgb 13.7 L Hct 40.9 L MCV 92.5 MCH 31.0 MCHC 33.5 RDW 12.7 Plt Count 173 MPV 10.5 Neut # (Auto) 3.8 Lymph # (Auto) 1.7 [place] # (Auto) 0.5 Eos # (Auto) 0.2 Baso # (Auto) 0.1 Absolute Nucleated RBC 0.00 Nucleated RBC % 0.0 PT 11.3 INR 1.0 APTT 27.4 Sodium 134 L Potassium 4.3 Chloride 99 L Carbon Dioxide 26 Anion Gap 9.0 BUN 35 H Creatinine 1.7 H Estimated GFR (MDRD) 40 L Glucose 272 H Calcium 9.0 Total Bilirubin 0.5 AST 19 ALT 22 Alkaline Phosphatase 85 Total Protein 6.6 L Albumin 4.1 Globulin 2.5 Albumin/Globulin Ratio 1.6 Nasal Adenovirus (PCR) Nasal B. parapertussis DNA (PCR) Nasal Coronavir 229E PCR Nasal Coronavir HKU1 PCR Nasal Coronavir NL63 PCR Nasal Coronavir OC43 PCR Nasal Enterovir/Rhinovir PCR Nasal Influenza B PCR Nasal Influenza A PCR Nasal Parainfluen 1 PCR Nasal Parainfluen 2 PCR Nasal Parainfluen 3 PCR Nasal Parainfluen 4 PCR Nasal RSV (PCR) Nasal B.pertussis DNA PCR Nasal C.pneumoniae (PCR) Abner Human Metapneumo PCR Nasal M.pneumoniae (PCR) Nasal SARS-CoV-2 (PCR) 02/12/21 20:20 WBC RBC Hgb Hct MCV MCH MCHC RDW Plt Count MPV Neut # (Auto) Lymph # (Auto) [place] # (Auto) Eos # (Auto) Baso # (Auto) Absolute Nucleated RBC Nucleated RBC % PT INR APTT Sodium Potassium Chloride Carbon Dioxide Anion Gap BUN Creatinine Estimated GFR (MDRD) Glucose Calcium Total Bilirubin AST ALT Alkaline Phosphatase Total Protein Albumin Globulin Albumin/Globulin Ratio Nasal Adenovirus (PCR) NOT DETECTED Nasal B. parapertussis DNA (PCR) NOT DETECTED Nasal Coronavir 229E PCR NOT DETECTED Nasal Coronavir HKU1 PCR NOT DETECTED Nasal Coronavir NL63 PCR NOT DETECTED Nasal Coronavir OC43 PCR NOT DETECTED Nasal Enterovir/Rhinovir PCR NOT DETECTED Nasal Influenza B PCR NOT DETECTED Nasal Influenza A PCR NOT DETECTED Nasal Parainfluen 1 PCR NOT DETECTED Nasal Parainfluen 2 PCR NOT DETECTED Nasal Parainfluen 3 PCR NOT DETECTED Nasal Parainfluen 4 PCR NOT DETECTED Nasal RSV (PCR) NOT DETECTED Nasal B.pertussis DNA PCR NOT DETECTED Nasal C.pneumoniae (PCR) NOT DETECTED Abner Human Metapneumo PCR NOT DETECTED Nasal M.pneumoniae (PCR) NOT DETECTED Nasal SARS-CoV-2 (PCR) NOT DETECTED - Rads (name of study) head CT Radiology: Final report received, EMP read contemporaneously, See rad report CT angio head Radiology: Final report received, EMP read contemporaneously, See rad report CT angio neck Radiology: Final report received, EMP read contemporaneously, See rad report PD MEDICAL DECISION MAKING - ED course Complexity details: reviewed results, re-evaluated patient, considered differential, d/w patient, 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 No acute findings on noncontrast head CT. Telestroke was consulted, Dr. Finnegan, stroke neurologist from [facility]. Recommends TPA. He consented the patient. Patient was given labetalol for hypertension, still remained hypertensive, therefore started on nicardipine drip. Blood pressure controlled and TPA was then started. There are no beds available at [facility] Therefore [facility] was contacted, Dr. Holguin, neurologist graciously accepts in transfer. COBRA forms completed. Patient was sent to the emergency department at [facility] via life flight. No change in his stroke scale. This document was made in part using voice recognition software. While efforts are made to proofread this document, sound alike and grammatical errors may occur. - TPA CVA checklist Inclusion crititeria: positive: Sig neuro deficit, CT no bleed, Onset know < 4.5 hr Absolute contraindications: negative: SBP>185 DBP>110 s/p tx, CT shows bleed, CT shows major est CVA, Platelets <100K, PTT > 40, INR >1.7, Known bleeding disorder, Surgery/trauma < 15 days, Seizure at onset, Internal bleed < 22 days, Brain/spine surg < 3 m, Head trauma < 3 m, CVA < 3 months, Any hx ICH, Any hx brain aneurysm, Any hx brain AVM, Any hx brain tumor, Suspect SAH Relative contraindications: negative: Too severe (NIHSS>22), Too mild, Rapid improvement, Glusose <50 >400, Life expectancy < 1 yr, Severe comorbid illness, Bacterial endocarditis, Severe hepatic dz, Severe renal dz, Hemorrhagic eye condition, Septic thrombophlebitis, Infected AV shunt, On coumadin, , Advanced age, Left heart thrombus Absolute contraindications if 3-4.5 hr: negative: Coumadin (any INR), Age > 80, Combo prior CVA & DM Departure - Departure Disposition: 02 Transfer Acute Care Hosp Clinical Impression: Stroke Qualifiers: CVA mechanism: unspecified Qualified Code(s): I63.9 - Cerebral infarction, unspecified Hypertension Qualifiers: Hypertension type: unspecified Qualified Code(s): I10 - Essential (primary) hypertension Type 2 diabetes mellitus 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
--- NOTE | 2021-02-12 19:49 | CT Report ---
PROCEDURE: Head W/O Stroke Protocol INDICATIONS: R sided weakness, ataxia TECHNIQUE: Noncontrast 4.5 mm thick angled axial sections acquired from the foramen magnum to the vertex, with c oronal reformats. For radiation dose reduction, the following was used: automated exposure control, adjustment of mA and/or kV according to patient size. COMPARISON: FINDINGS: Image quality: Excellent. CSF spaces: Basal cisterns are patent. No extra-axial fluid collections. Ventricles are normal in size and shape. Brain: No midline shift. No intracranial masses or hemorrhage. Reynolds-white matter interface is norm al. Skull and face: Calvarium and visualized facial bones are intact, without suspicious lesions. Sinuses: Visualized sinuses and mastoids are clear. IMPRESSION: No acute intracranial finding. Findings were discussed with Dr. Gomez at 7:43 PM on 02/02. 7 This study fulfills neurological imaging criteria for inclusion or exclusion of acute stroke therapie s based on available published neurological imaging guidelines. Reviewed by: Hai Raya MD on 02/12/2021 7:48 PM PDT Approved by: Hai Raya MD on 02/12/2021 7:48 PM PDT Station ID: [id number]
--- NOTE | 2021-02-12 19:52 | CT Report ---
PROCEDURE: ANGIO HEAD W/WO INDICATIONS: R sided weakness, ataxia CONTRAST: IV CONTRAST: Isovue 300 ml: 80 PO CONTRAST: *NO PO CONTRAST TECHNIQUE: Precontrast 4.5 mm thick angled axial sections acquired from the foramen magnum to the vertex. Afte r the administration of intravenous contrast, 1 mm thick sections acquired through the [place] of [place] is. Postcontrast 4.5 mm thick sections then re-acquired from the foramen magnum to the vertex. 3-di mensional noxbjzs-hfsttwyye-uhdalwwlee (MIP) and/or volume rendering reformats were acquired of the c entral intracranial vasculature. For radiation dose reduction, the following was used: automated ex posure control, adjustment of mA and/or kV according to patient size. COMPARISON: Same day head CT FINDINGS: Image quality: Excellent. Anterior circulation: Intracranial internal carotid arteries are normal in size and flow. The flow within the paired anterior cerebral arteries is normal and symmetric. The flow within the middle cer ebral arteries is normal and symmetric. The anterior communicating artery is seen. No aneurysms are seen. Posterior circulation: Visualized portions of the vertebral arteries demonstrate normal caliber, and join to form a normal appearing basilar artery. Flow within the posterior cerebral arteries is norm al and symmetric. No aneurysms are seen. CSF spaces: Ventricles are normal in size and shape. Basal cisterns are patent. No extra-axial flu id collections. Brain: No midline shift. No intracranial bleeds or masses. Reynolds-white matter interface appears int act. Skull and face: Calvarium and facial bones appear intact, without suspicious lesions. Sinuses: Visualized sinuses and mastoids are clear. IMPRESSION: No large vessel occlusion or hematemesis significant stenosis of the major intracranial arterial circ ulation. Reviewed by: Hai Raya MD on 02/12/2021 7:51 PM PDT Approved by: Hai Raya MD on 02/12/2021 7:51 PM PDT Station ID: [id number]
--- NOTE | 2021-02-12 19:54 | CT Report ---
PROCEDURE: ANGIO NECK W INDICATIONS: R sided weakness, ataxia CONTRAST: IV CONTRAST: Isovue 300 ml: 80 PO CONTRAST: *NO PO CONTRAST TECHNIQUE: After the administration of intravenous contrast, 1.5 mm axial sections acquired from the aortic arch to the [place]. Coronal 3-D maximum intensity projection (MIP) and/or volume rendering ref ormats were then performed. For radiation dose reduction, the following was used: automated exposur e control, adjustment of mA and/or kV according to patient size. COMPARISON: None. FINDINGS: Image quality: Excellent. Carotid system: The great vessels demonstrate a conventional anatomy as they arise from the aortic a [facility]. The origins of the common carotid arteries appear patent. The common carotid arteries demonstr ate normal calibers and courses. The bifurcation regions appear normal bilaterally. The internal ca rotid arteries demonstrate normal caliber and course. Posterior circulation: The origins of the vertebral arteries appear patent. The more superior porti ons of the vertebral arteries demonstrate normal course and caliber. They join to form a normal appe aring basilar artery. Soft tissues: Visualized neck soft tissues demonstrate no suspicious abnormalities. The thyroid is normal in size and there are no incidental findings. Bones: No suspicious bony lesions. Visualized cervical spine appears normally aligned. IMPRESSION: No hemodynamically significant stenosis of the major extracranial arterial circulation identified. Findings discussed with Dr. Gomez at 7:45 PM on 02/12/2021. The estimate of stenosis included in the report of the imaging study was calculated using the NASCET method Reviewed by: Hai Raya MD on 02/12/2021 7:53 PM PDT Approved by: Hai Raya MD on 02/12/2021 7:53 PM PDT Station ID: [id number]
[2021-02-12] MEDS ORDERED: LABETALOL 20 MG/4 ML SYRINGE IVP STA (20:14)
[2021-02-12] MEDS: ALTEPLASE 90 MG in WATER FOR INJECTION,STERILE 100 ML IV STA ×2 (20:37→21:18)
[2021-02-12] MEDS ORDERED: NICARDIPINE HCL 25 MG in SODIUM CHLORIDE 0.9% 240 ML IV STA (20:38)
[2021-02-12] MEDS ORDERED: NICARDIPINE HCL 25 MG/10 ML VIAL IV ONE ×2 (20:43→20:48)
[2021-02-12] MEDS ORDERED: ALTEPLASE 100 MG VIAL ONE (21:06)
[2021-02-12 21:11] LABS: B. PARAPERTUSSIS- RESP PCR PAN NOT DETECTED; B. PERTUSSIS- RESP PCR PANEL NOT DETECTED; C. PNEUMONIAE- RESP PCR PANEL NOT DETECTED; CORONAVIRUS 229E-RESP PCR NOT DETECTED; CORONAVIRUS HKU1-RESP PCR NOT DETECTED; CORONAVIRUS NL63-RESP PCR NOT DETECTED; CORONAVIRUS OC43-RESP PCR NOT DETECTED; HUMAN METAPNEUMOVIRUS NOT DETECTED; INFLUENZA A- RESP PCR PANEL NOT DETECTED; INFLUENZA B - RESP PCR PANEL NOT DETECTED; M. PNEUMONIAE- RESP PCR PANEL NOT DETECTED; PARAINFLUENZA VIRUS 1 NOT DETECTED; PARAINFLUENZA VIRUS 2 NOT DETECTED; PARAINFLUENZA VIRUS 3 NOT DETECTED; PARAINFLUENZA VIRUS 4 NOT DETECTED; RHINOVIRUS/ENTEROVIRUS NOT DETECTED; RSV- RESP PCR PANEL NOT DETECTED; SARS-CoV-2 -RESP PCR PANEL NOT DETECTED
[2021-02-12] MEDS ORDERED: IOPAMIDOL-300 100 ML VIAL IVP ONE (21:20)
[2021-02-12 22:30] VITALS: BP 153/60
== END 2021-02-12 23:01 | disposition short-term general hospital (02) ==
LOC: ED 18:59
DX: I63.9 Cerebral infarction, unspecified (principal); G81.91 Hemiplegia, unspecified affecting right dominant side; R27.0 Ataxia, unspecified; I10 Essential (primary) hypertension; R29.704 NIHSS score 4; E78.00 Pure hypercholesterolemia, unspecified; J44.9 Chronic obstructive pulmonary disease, unspecified; G47.30 Sleep apnea, unspecified; N40.1 Benign prostatic hyperplasia with lower urinary tract symptoms; N39.498 Other specified urinary incontinence; Z20.822 Contact with and (suspected) exposure to COVID-19; Z79.4 Long term (current) use of insulin; Z79.82 Long term (current) use of aspirin; Z79.899 Other long term (current) drug therapy
CPT/HCPCS: 36415; 37195; 70450; 70496; 70498; 80053; 85025; 85610; 85730; 87631; 93005; 96365; 96366; 96375; 99285; J2997; Q9967; 0202U

== ENCOUNTER 2021-09-15 08:00 | Outpatient (CLI) | payer MEDICARE, OTHER ==
[2021-09-15 16:24] LABS: CALCIUM 9.3 mg/dL (8.5-10.3); CREATININE 1.8 mg/dL (0.6-1.2); POTASSIUM 5.4 mmol/L (3.5-5.0)
[2021-09-15 20:28] LABS: ESTIMATED AVERAGE GLUCOSE 180 mg/dL (70-100); HEMOGLOBIN A1c% 7.9 % (4.27-6.07)
== END 2021-09-15 23:59 ==
LOC: LAB.R 08:00
PROVIDERS: ATTEND Internal Medicine
DX: E11.9 Type 2 diabetes mellitus without complications (principal); Z79.899 Other long term (current) drug therapy
CPT/HCPCS: 80048; 83036

== ENCOUNTER 2024-03-28 08:42 | Outpatient (CLI) | payer MEDICARE, OTHER ==
[2024-03-28 08:54] LABS: BASOPHILS # (AUTO) 0.1 10^3/uL (0.0-0.1); BASOPHILS % (AUTO) 1.1 %; EOSINOPHILS # (AUTO) 1.8 10^3/uL (0.0-0.7); EOSINOPHILS % (AUTO) 19.2 %; HCT - HEMATOCRIT 49.9 % (42.0-52.0); HGB - HEMOGLOBIN 15.7 g/dL (14.0-18.0); LYMPHOCYTES # (AUTO) 2.6 10^3/uL (1.5-3.5); LYMPHOCYTES % (AUTO) 27.3 %; MEAN CORPUSCULAR HEMOGLOBIN 30.4 pg (27.0-31.0); MEAN CORPUSCULAR HGB CONC 31.5 g/dL (32.0-36.0); MEAN CORPUSCULAR VOLUME 96.7 fL (80.0-94.0); MEAN PLATELET VOLUME 10.5 fL (7.4-11.4); MONOCYTES # (AUTO) 0.8 10^3/uL (0.0-1.0); MONOCYTES % (AUTO) 8.5 %; NEUTROPHILS # (AUTO) 4.1 10^3/uL (1.5-6.6); NEUTROPHILS % (AUTO) 43.4 %; PLT - PLATELET COUNT 151 10^3/uL (130-450); RED BLOOD COUNT 5.16 10^6/uL (4.70-6.10); RED CELL DISTRIBUTION WIDTH 12.8 % (12.0-15.0); WHITE BLOOD COUNT 9.5 x10^3/uL (4.8-10.8)
[2024-03-28 09:03] LABS: ESTIMATED AVERAGE GLUCOSE 203 mg/dL (70-100); HEMOGLOBIN A1c% 8.7 % (4.27-6.07)
[2024-03-28 09:05] LABS: RBC MORPHOLOGY (MULTIPLE) 2+ ANISOCYTOSIS (NORMAL); SLIDE REVIEW? Indicated
[2024-03-28 09:09] LABS: ALBUMIN 4.3 g/dL (3.2-5.5); ALBUMIN/GLOBULIN RATIO 1.9 (1.0-2.2); ALKALINE PHOSPHATASE 109 IU/L (42-121); ALT ALANINE AMINOTRANSFERASE 19 IU/L (10-60); AST ASPARTATE AMINOTRANSFERASE 19 IU/L (10-42); BILIRUBIN,TOTAL 0.5 mg/dL (0.2-1.0); BUN - BLOOD UREA NITROGEN 36 mg/dL (6-20); CALCIUM 9.7 mg/dL (8.5-10.3); CARBON DIOXIDE - CO2 32 mmol/L (21-32); CHLORIDE 103 mmol/L (101-111); CHOLESTEROL 150 mg/dL; CREATININE 2.1 mg/dL (0.6-1.3); GFR - MDRD 31 (>89); GLUCOSE 113 mg/dL (74-104); HDL CHOLESTEROL 30 mg/dL; LDL CHOLESTEROL,CALCULATED 68 mg/dL; LDL/HDL RATIO 2.3 (<3.6); POTASSIUM 4.6 mmol/L (3.5-4.5); SODIUM 139 mmol/L (135-145); TOTAL PROTEIN 6.6 g/dL (6.4-8.9); TRIGLYCERIDES 258 mg/dL; VLDL CHOLESTEROL 52 mg/dL
[2024-03-28 09:10] LABS: MICROALBUM/CREATININE RATIO,UR 641.9 ug/mg (<30.0); MICROALBUMIN,URINE 27.6 mg/dL
[2024-03-28 09:23] LABS: THYROID STIMULATING HORMONE 3.73 uIU/mL (0.34-5.60)
== END 2024-03-28 08:43 | disposition home or self-care (01) ==
LOC: LAB 08:42
PROVIDERS: ATTEND Nurse Practitioner Family
DX: I10 Essential (primary) hypertension (principal); E11.40 Type 2 diabetes mellitus with diabetic neuropathy, unspecified; E11.65 Type 2 diabetes mellitus with hyperglycemia; Z12.5 Encounter for screening for malignant neoplasm of prostate; E78.2 Mixed hyperlipidemia
CPT/HCPCS: 36415; 80053; 80061; 82043; 82570; 83036; 84443; 85025; G0103; 83721; 84153